=== PATIENT | female | born 1965 | race African-American/Black ===

== ENCOUNTER 2025-05-20 08:23 | Emergency (ER) | payer OTHER ==
[~2025-05-20] VITALS: Ht 157.5 cm; Wt 58.9 kg
[2025-05-20 09:42] LABS: INR 0.92
[2025-05-20 09:55] LABS: CK-MB VALUE MASS 1.2 NG/ML (<3.6)
[2025-05-20 09:57] LABS: ALT/SGPT 21.0 U/L (7.0-40); AST/SGOT 27.0 U/L (<34); CALCIUM LEVEL 8.8 MG/DL (8.3-10.6); CARBON DIOXIDE LEVEL 28.0 MMOL/L (20-31); CHLORIDE LEVEL 104.0 MMOL/L (98-107); CREATININE FOR GFR 0.77 MG/DL (0.55-1.30); GLOMERULAR FILTRATION RATE 87.7 (>45); POTASSIUM SERUM 3.9 MMOL/L (3.5-5.1); SODIUM LEVEL 144.0 MMOL/L (136-145)
[2025-05-20 09:59] LABS: FREE T4 1.11 NG/DL (0.89-1.76)
[2025-05-20 10:01] LABS: BASO # 0.0 10^3/uL (0.0-0.2); BASO % 0.8 % (0.0-1.0); EOS # 0.0 10^3/uL (0.0-0.5); EOS % 0.8 % (0.0-3.0); LYMPH # 2.4 10^3/uL (1.5-5.0); LYMPH % 46.3 % (24.0-44.0); MONO # 0.5 10^3/uL (0.0-0.8); MONO % 9.4 % (2.0-8.0); NEUTROPHILS # 2.1 10^3/uL (1.5-8.5); NEUTROPHILS % 41.9 % (36.0-66.0); PLATELET COUNT, AUTOMATED 186 10^3/uL (150-450)
[2025-05-20 10:21] LABS: CPK CREATINE PHOSPHOKINASE 87.0 U/L (34-145); MB/CK RELATIVE INDEX 1.37 (< OR =4)
[2025-05-20 13:30] VITALS: BP 168/93; TEMP 98.1; O2SAT 98
== END 2025-05-20 13:36 | disposition home or self-care (01) ==
LOC: M ED 08:23
DX: I10 Essential (primary) hypertension (principal); R51.9 Headache, unspecified